=== PATIENT | female | born 1930 | race Two or more races ===

== ENCOUNTER 2022-06-11 10:42 | Emergency (ER) | payer OTHER ==
[~2022-06-11] VITALS: Ht 157.5 cm; Wt 59.0 kg
[2022-06-11] MEDS ORDERED: PENTOXIFYLLINE400 MG PO (10:49)
[2022-06-11] MEDS ORDERED: LEVOTHYROXINE25 MC1 PO (10:49)
[2022-06-11] MEDS ORDERED: ALPHAGAN P5 M2 OP (10:49)
[2022-06-11] MEDS ORDERED: VITAMIN D350 MCG PO (10:49)
[2022-06-11] MEDS ORDERED: FOSAMAX70 MG PO (10:50)
[2022-06-11] MEDS ORDERED: ALENDRONATE SOD35 MG PO (10:51)
== END 2022-06-11 14:08 | disposition home or self-care (01) ==
LOC: ER 10:42
DX: I95.9 Hypotension, unspecified (principal); M19.90 Unspecified osteoarthritis, unspecified site; E03.9 Hypothyroidism, unspecified; M81.0 Age-related osteoporosis without current pathological fracture; Z87.448 Personal history of other diseases of urinary system; Z86.79 Personal history of other diseases of the circulatory system